=== PATIENT | female | born 1970 | race Caucasian/White ===

== ENCOUNTER → 2016-10-10 | Outpatient (CLI) | payer MEDICAID ==
[~2016-10-10] MED LIST: ABILIFY20 MG; ACETAMINOPHEN &1 TA1 PO; ATIVAN0.5 MG PO; CALTRATE 600600 MG PO; CLARITIN10 MG PO; DARVOCET A500 51 TAB PO; DARVOCET-N6 EACH/PAK PO; FLEXERIL10 MG PO; GABAPENTIN300 MG PO; HYDROCODONE-APA1 TA2 PO; LEVAQUIN 750 M750 MG PO; LISINOPRIL5 MG PO; LORTAB 5/500 501 TAB PO; LORTAB 500 MG-11 TAB PO; METFORMIN500 MG PO; MINOCYCLINE100 MG PO; NAPROSYN500 M1 PO; PEN-VK500 MG PO; PENICILLIN VK500 MG PO; PREDNISONE 20MG20 MG PO; PRILOSEC20 M1 PO; PROPRANOLOL HCL40 MG PO; SINGULAIR10 MG PO; SYNTHROID 0.0.125 MG PO; TAMIFLU 75MG CA75 MG PO; TESSALON PERLE100 M1 PO; TORADOL10 MG PO; TRAMADOL 50MG T50 M1 PO; TRAMADOL50 M1 PO; ZITHROMAX Z PA250 MG PO; ZOFRAN4 MG PO
--- NOTE | 2016-10-10 13:09 | RADIOLOGY REPORT PS360 ---
EXAM: CERVICAL SPINE 4 OR 5 VIEWS HISTORY: NECK PAIN ORDERING PHYSICIAN: REFERRAL PATIENT AGE: 46 years COMPARISON: None FINDINGS: Normal alignment. No fracture or dislocation. No lytic or blastic change. No significant degenerative change. The disc spaces are preserved. The foramina are widely patent. No prevertebral soft tissue swelling IMPRESSION: Negative cervical spine
== END ==
LOC: RAD 12:33
DX: M54.2 Cervicalgia (principal)

== ENCOUNTER 2017-03-17 12:33 | Emergency (ER) | payer MEDICAID ==
[~2017-03-17] VITALS: Ht 167.6 cm; Wt 113.4 kg
--- NOTE | 2017-03-17 13:31 | Urgent Treatment Center Report ---
History of Present Issue Date/Time Seen by Provider 03/17/17 1329 Visit Reason Pt arrived:Walked Presenting Problem:PT IS C/O RIGHT KNEE PAIN BUT DOES NOT RECALL AN INJURY Location if Accident: Onset of symptoms date/time:/ or onset unknown for:MEDICAL HX UNKNOWN Have you (or family members/close friends) recently traveled outside the [place]? N If Yes, where/when: Have you had exposure to infectious disease within the past month? TB? Other? Specify: Patient state that she has been havingt pain in her right knee area with mild swelling but does not recall doing anything to cause injury to the knee States that she has been having issues with the knee for several days now and has continued to get worse. States that today she decided to come in and have it checked out ALLERGIES Coded Allergies: No Known Allergies () Home Medications Active Scripts Benzonatate (Tessalon Perle) 100 MG PO TID #15 SGL Prov: 03/23/16 Prednisone (Prednisone 20MG) 20 MG PO BID #10 TAB Prov: 03/23/16 Minocycline Hcl (Minocycline HCl) 100 MG PO BID #14 CAP Prov: 03/23/16 Reported Medications TRAMADOL HCL (Tramadol) 50 MG PO BID Cyclobenzaprine Hcl (Flexeril) 10 MG PO PRN PRN SPASMS OMEPRAZOLE MAGNESIUM (Prilosec 20MG) 20 MG PO DAILYP PRN HEARTBURN Levothyroxine Sodium (Synthroid 0.125MG) 0.125 mg PO DAILY #90 Ref 1 Loratadine (Claritin 10MG Tab) 10 MG PO DAILY Montelukast Sodium (Singulair) 10 MG PO QHS HYDROCODONE/ACETAMINOPHEN (Hydrocodon-Acetaminophn 10-325) 1 TAB PO TIDP PRN BACK PAIN History Medical History General CAD? No Angina: No [place]: No Hypertension? No Hyperlipidemia? No CHF? No DVT? No PE? No COPD? No Asthma? Yes Anemia? No GERD? No Gastric ulcers? No GI Bleed? No Hernia? No Thyroid Problems? No Hypothyroidism? No CVA? No Seizures? Yes Diabetes? Yes Insulin Dependent: No Insulin Pump: No Home FSBS? Yes Renal Insuffiency? No UTI? No Stones? No BPH? No GB Disease: No Nephritic Syndrome? No Asplenia? No Hepatitis? No Sickle Cell Disease? No Arthritis? Yes Migraines? No Cataracts? No Glaucoma? No MRSA? No HIV? No TB? No Anxiety? No Depression? No Cancer? No More? No Immunization HX DT/Tetanus 5-10 Years Ago Flu Refused Pneumonia Unknown Surgical Hx Previous Surgery?Y X 1 TONSILECTOMY Tubal Ligation THYROIDECTOMY Family History Family HX Diabetes Yes CAD Yes Hypertension Yes Hyperlipidemia Yes Cancer Yes TB No Social History Smoking Hx Smoker: Never Smoker Tobacco: No Alcohol Alcohol: No Review of Systems All Other Systems Reviewed and Negative Comment Pain and mild swelling in her right knee but does not recall doing anything to cause injury to the knee Physical Exam Vital Signs Vital Signs Date Time Temp Pulse Resp B/P Pulse O2 O2 Flow FiO2 Ox Delivery Rate 03/17 1258 97.9 72 18 161/86 98 General Appearance normal appearance, WD/WN, no apparent distress Respiratory Status Yes: trachea midline, chest symmetrical, non tender chest. No: respiratory distress. 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 No Results/Orders Orders Procedure Date/time Status UTC STABILIZE JOINT/AREA 03/17 1357 Active KNEE-3 VIEWS-RT 03/17 1256 Active XRAY/CT/US XRAY/CT/US XRAY knee XR interpretation by reviewed by me Xray Results Arthritic changes, joint effusion noted Departure Departure Time of Disposition 1402 Disposition DC Home or Self Care(routine) Clinical Impression Primary Impression: Knee pain Qualifiers: Chronicity: unspecified Laterality: right Qualified Code: M25.561 - Pain in right knee Condition STABLE Referrals Chadwick WINSLOW,Martin Valderrama (Family) Adama Bahena MD: Today after leaving ER PAOLA WINSLOW, ROCKY KAM: Today after leaving ER Patient Instructions DI for Knee Pain, How To Perform RICE (Rest, Ice, Compress, Elevate) Additional Instructions Follow up with Orthopedics as advised in the office today Return if needed *RICE, Rest the extremity, Ice 15-20 minutes 3-4 times daily, Compress- wear the hiram wrap as discussed as much as possible to help reduce swelling and pain, Elevate the extremity when at rest *Hiram wrap is for support and help control swelling, use it except in the shower. Be sure that is not to tight but not to loose either *Elevate when resting *Ibuprofen 600-800mg every 6-8 hours as needed for pain an inflammation. If need something more can take Tylenol in between doses of Ibuprofen to help Immediately follow up for new or worsening of symptoms, or no noticeable improvement over the next 3-5 days Prescriptions Current Visit Scripts Ibuprofen (Ibuprofen 800MG) 800 MG PO QIDP PRN pain #30 TAB at 1167
[2017-03-17 14:07] VITALS: BP 161/86
--- NOTE | 2017-03-17 14:29 | RADIOLOGY REPORT PS360 ---
KNEE-3 VIEWS-RT HISTORY: KNEE PAIN X 1 DAY ORDERING PHYSICIAN: MASHA WALSH APRN PATIENT AGE: 46 years COMPARISON: None 08/06/2016 FINDINGS: There are moderate osteoarthritic changes of the medial compartment and patellofemoral joint with mild osteoarthritic changes of the lateral compartment. Bony spurs are present along the posterior aspect of the distal femur, the medial aspect of the distal femur, and patella as well as the medial and proximal aspect of the tibia. Small calcific densities once again noted on either side of the intercondylar notch probably due to osteophytes as previously described. There may be a small knee joint effusion in the suprapatellar region IMPRESSION: 1. No change osteoarthritis. 2. Possible small knee joint effusion
== END 2017-03-17 14:09 | disposition home or self-care (01) ==
LOC: UTC 12:33
DX: M25.561 Pain in right knee (principal); J45.909 Unspecified asthma, uncomplicated; M19.90 Unspecified osteoarthritis, unspecified site; E11.9 Type 2 diabetes mellitus without complications; Z79.891 Long term (current) use of opiate analgesic; Z79.899 Other long term (current) drug therapy

== ENCOUNTER 2017-03-24 16:10 | Emergency (ER) | payer MEDICAID ==
[~2017-03-24] VITALS: Ht 167.6 cm; Wt 136.1 kg
[~2017-03-24 16:10] MED LIST changes: +IBUPROFEN800 MG PO
--- NOTE | 2017-03-24 16:15 | Emergency Room Report ---
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 N Clinical Suspician of Infection? N Mental Status: 1 - Regular (Normal Baseline) Sepsis Risk:Low Sepsis Risk Have you (or family members/close friends) recently traveled outside the [place]? N If Yes, where/when: Have you had exposure to infectious disease within the past month? TB? Other? Specify: Comment The patient complains of pain in her anterior LEFT chest, LEFT arm, and the back of her neck. She says all of this began while laying down watching TV. She does not have shortness of breath, but says she is "blowing small breaths". She denies numbness. No injury. No nausea, vomiting, or diaphoresis. She does not have any known heart disease, but says that her mother does. She has never had a stress test or angiogram. She has been seen in the emergency room for chest pain before, says that she was diagnosed with pleurisy, but this is more intense. She says nothing seems to make her pain better or worse. The patient has chronic low back pain, she is in pain management. ALLERGIES Coded Allergies: No Known Allergies (03/24/17) Home Medications Active Scripts Ibuprofen (Ibuprofen 800MG) 800 MG PO QIDP PRN pain #30 TAB Prov: 03/17/17 Benzonatate (Tessalon Perle) 100 MG PO TID #15 SGL Prov: 03/23/16 Prednisone (Prednisone 20MG) 20 MG PO BID #10 TAB Prov: 03/23/16 Minocycline Hcl (Minocycline HCl) 100 MG PO BID #14 CAP Prov: 03/23/16 Reported Medications TRAMADOL HCL (Tramadol) 50 MG PO BID Cyclobenzaprine Hcl (Flexeril) 10 MG PO PRN PRN SPASMS OMEPRAZOLE MAGNESIUM (Prilosec 20MG) 20 MG PO DAILYP PRN HEARTBURN Levothyroxine Sodium (Synthroid 0.125MG) 0.125 mg PO DAILY #90 Ref 1 Loratadine (Claritin 10MG Tab) 10 MG PO DAILY Montelukast Sodium (Singulair) 10 MG PO QHS HYDROCODONE/ACETAMINOPHEN (Hydrocodon-Acetaminophn 10-325) 1 TAB PO TIDP PRN BACK PAIN History Medical History General CAD? No Angina: No [place]: No Hypertension? No Hyperlipidemia? No CHF? No DVT? No PE? No COPD? No Asthma? Yes Anemia? No GERD? No Gastric ulcers? No GI Bleed? No Hernia? No Thyroid Problems? No Hypothyroidism? No CVA? No Seizures? Yes Diabetes? Yes Insulin Dependent: No Insulin Pump: No Home FSBS? Yes Renal Insuffiency? No End Stage Renal Disease? No UTI? No Stones? No BPH? No GB Disease: No Nephritic Syndrome? No Asplenia? No Hepatitis? No Sickle Cell Disease? No Arthritis? Yes Migraines? No Cataracts? No Glaucoma? No MRSA? No HIV? No TB? No Anxiety? No Depression? No Cancer? No More? No Immunization Hx DT/Tetanus 5-10 Years Ago Flu Refused Pneumonia Unknown Surgical Hx Previous Surgery?Y X 1 TONSILECTOMY Tubal Ligation THYROIDECTOMY Family History Family Hx Diabetes Yes CAD Yes Hypertension Yes Hyperlipidemia Yes Cancer Yes TB No Social History Alcohol Alcohol: No Review of Systems All Other Systems Reviewed and Negative Constitutional denies diaphoresis, denies fever Respiratory denies cough, denies shortness of breath Cardiovascular chest pain Gastrointestinal denies abdominal pain, denies nausea, denies vomiting Musculoskeletal see HPI, neck pain Psychiatric/Neurological denies numbness, denies weakness Physical Exam Vital Signs Vital Signs Date Time Temp Pulse Resp B/P Pulse O2 O2 Flow FiO2 Ox Delivery Rate 03/24 1928 97.9 70 18 139/67 96 03/24 1825 70 18 125/93 96 03/24 1654 88 20 128/94 94 03/24 1647 20 03/24 1611 97.9 86 18 155/80 99 General Appearance mild distress Eye Exam - bilateral eye normal exam, bilateral eye PERRL, bilateral eye EOMI Ear, Nose, Throat hearing grossly normal, normal ENT inspection Neck cervical spine tenderness. Positive Spurling test to the LEFT. Respiratory Status Yes: trachea midline, chest symmetrical, non tender chest. No: respiratory distress. Lung Sounds bilateral: normal breath sounds, lungs clear. Cardiovascular normal exam, regular rate/rhythm, no peripheral edema, no gallop, no JVD, no murmur, no rub, normal peripheral pulses Peripheral Pulses Pulses normal Yes Gastrointestinal normal bowel sounds, normal exam, non tender, soft, no organomegaly Extremities non-tender, normal range of motion, normal inspection Neurologic alert, normal exam, no motor/sensory deficits, oriented x 3 Mental status appears anxious Skin intact, normal color, warm/dry Medical Decision Making LABS/Meds/Orders Pt receiving controlled substance in ED? Yes Comment [id number] rxs. last rx 03/18/17, 120 lortab 7.5mg. Results/Orders Laboratory Tests 03/24/17 1830: Troponin I < 0.02 03/24/17 1614: Sodium 137, Potassium 4.2, Chloride 102, Carbon Dioxide 28, BUN 18, Creatinine 0.9, Estimated Creat Clear 170, Estimated GFR (MDRD) 68, Glucose 108 H, Calcium 8.9, Total Bilirubin 0.2, AST 6 L, ALT 19, Alkaline Phosphatase 75, Creatine Kinase 34, CK-MB (CK-2) Rel Index 1.5, CK and CKMB Interp < 0.5, Troponin I < 0.02, Total Protein 7.8, Albumin 3.5, Globulin 4.3 H, Albumin/Globulin Ratio 0.8 L, WBC 12.1 H, RBC 4.47, Hgb 11.0 L, Hct 34.7 L, MCV 77.7 L, RDW 15.5, Plt Count 355, Gran % 64.6, Gran # 7.8, Lymphocytes % 31.5, Monocytes % 3.9, Lymphocytes # 3.8, Monocytes # 0.5, PUBS MCHC 31.7 L, MCH 24.6 L Current Medication Orders Sig/Josie Start time Last Medication Dose Route Stop Time Status Admin Aspirin 324 MG ONCE ONE 03/24 1645 DC 03/24 PO 03/24 Aspirin 0 .STK-MED ONE 03/24 1645 DC .ROUTE Methylprednisolone 125 MG ONCE ONE 03/24 1645 DC 03/24 Sodium Succinate IV 03/24 Methylprednisolone 0 .STK-MED ONE 03/24 1645 DC Sodium Succinate .ROUTE Morphine Sulfate 4 MG ONCE ONE 03/24 1645 DC 03/24 IV 03/24 1646 1647 Morphine Sulfate 0 .STK-MED ONE 03/24 1645 DC .ROUTE Ondansetron HCl 4 MG ONCE ONE 03/24 1645 DC 03/24 IV 03/24 1646 1647 Ondansetron HCl 0 .STK-MED ONE 03/24 1645 DC .ROUTE Sodium Chloride 10 ML PRN PRN 03/24 1645 AC IV 03/25 1642 Orders Procedure Date/time Status TROPONIN I 03/24 182 Complete IV SALINE LOCK 03/24 164 Active CBC WITH AUTO DIFF 03/24 164 Complete CARDIAC ENZYMES 03/24 164 Complete CHEM 12 PROFILE 03/24 164 Complete CM/EKG CM/EKG Comments EKG interpreted by Robert Burns MD: Rhythm: sinus Rate: 87 [place]: normal Ectopy: none Conduction: normal ST Segment Changes: none T Wave Changes: none Q Waves: none No evidence of acute ischemia or injury Baseline artifact and wander present, but I consider the EKG adequate for accurate interpretation. Prior electrocardiagrams reviewed. No change from prior tracings. XRAY/CT/US XRAY/CT/US XRAY chest Comment Chest x-ray interpreted by Robert Burns M.D. No infiltrate, pneumothorax, pleural effusion, or wide mediastinum. Progress - 5:45 PM: Patient states pain is much better. 7:00 PM: Second troponin less than 0.02. Symptoms do not suggest cardiac cause, but more suggestive of cervical radiculopathy. A prominent aspect of her presentation is pain and tenderness in the back of her neck and pain with movement, positive Spurling. Patient states she feels good. I feel she can be discharged for outpatient follow-up. She has pain medication and muscle relaxers at home. I will also start on prednisone. I estimate there is LOW risk for PULMONARY EMBOLISM, ACUTE CORONARY SYNDROME, OR THORACIC AORTIC DISSECTION, thus I consider the discharge disposition reasonable. Departure Departure Disposition DC Home or Self Care(routine) Clinical Impression Primary Impression: Atypical chest pain Secondary Impressions: Radicular pain Condition STABLE Patient Instructions DI for Atypical Chest Pain, DI for Cervical Radiculopathy Additional Instructions Additional instructions for CHEST PAIN: See your physician as soon as possible for further evaluation. Return immediately if worsening chest pain, vomiting, shortness of breath, fever, coughing of blood. Additional instructions for NECK PAIN: See your physician as soon as possible for further evaluation. Return immediately if neck pain becomes intolerable, or if fever, numbness or weakness of your arms or legs, loss of control of your bowels or bladder. Prescriptions Current Visit Scripts Prednisone (Prednisone 20MG Tab) 20 MG PO BID #10 TAB ED Critical Care Critical Care No at 1937
[2017-03-24 16:56] LABS: LYMPH # 3.8 K/mm3 (0.7-4.5); LYMPH % 31.5 % (10-50.0)
[2017-03-24 17:22] LABS: BUN 18 mg/dL (7-18); GFR (ESTIMATED) 68 ML/MIN (59-)
--- NOTE | 2017-03-24 17:37 | RADIOLOGY REPORT PS360 ---
CHEST(2 VIEWS-NOT PORTABLE) HISTORY: chest pain ORDERING PHYSICIAN: Robert Burns MD PATIENT AGE: 46 years COMPARISON: 05/13/2016 FINDINGS: The cardiomediastinal silhouette and pulmonary vascularity are within normal limits. The lungs are clear without infiltrates, suspicious nodules, or pleural effusions. No acute bony abnormalities. There is an azygos fissure is normal variant IMPRESSION: Negative chest, no acute finding
[2017-03-24] MEDS ORDERED: PREDNISONE20 MG PO (19:05)
[2017-03-24 19:32] VITALS: BP 139/67
== END 2017-03-24 19:34 | disposition home or self-care (01) ==
LOC: ER 16:10
PROVIDERS: Emergency Medicine
DX: R07.89 Other chest pain (principal); M54.12 Radiculopathy, cervical region; J45.909 Unspecified asthma, uncomplicated; E11.9 Type 2 diabetes mellitus without complications
CPT/HCPCS: J2405

== ENCOUNTER → 2017-04-17 | Outpatient (CLI) | payer MEDICAID ==
[~2017-04-17] MED LIST changes: +PREDNISONE20 MG PO
== END ==
LOC: RAD 15:51
DX: M17.11 Unilateral primary osteoarthritis, right knee (principal)

== ENCOUNTER → 2017-04-20 | Outpatient (CLI) | payer MEDICAID ==
--- NOTE | 2017-04-22 12:54 | RADIOLOGY REPORT PS360 ---
MRI-LOW EXT ANY JOINT W/O-RT MRI right knee HISTORY: PRIMARY OSTEOARTHRITIS OF RIGHT KNEE knee pain 2 years anterior and medial knee. Patient Age: 46 years: Female Ordering Physician: ROCKY GUEVARA MD TECHNIQUE: Multiplanar multisequence imaging 1.5T MRI large patient likely requiring alternative coil COMPARISON :3 view radiograph right knee 03/17/2017 FINDINGS OSTEOARTHRITIS. Most pronounced medial compartment Joint space narrowing & diffuse chondral thinningmost evident at the medial compartment. Tricompartmental marginal osteophytes are most large exuberant marginal osteophytes most evident about the margin of the medial compartment and specifically from the medial femoral condyle. Best seen on coronal images... Reactive bone changes most notable at the the medial margin medial tibial plateau reflecting the narrowed joint, osteoarthritis and MMT features here. MEDIAL MENISCAL TEARclearly evident most pronounced posterior horn which appears to have somewhat fragmented appearance on sagittal images.qq, and could not exclude a displaced meniscal fragment just along the medial margin of the PCL. This will require inspection arthroscopy procedure if performed. Meniscal tear extends into into the body the medial meniscus. Also note the The medial meniscus has migrates medially, accompanying the prominent marginal osteophytes Note metallic artifact along the medial margin joint-may reflect previous procedure at knee. Lateral Compartment: is better maintained. Lateral meniscus intact. Mild/moderate size marginal osteophytes lateral margin of joint. Cartilage better fairly well maintained Prominent Joint Effusion most evident at suprapatellar bursa. Patellofemoral joint with notable arthritic changes as well.. Generous marginal osteophytes about the margin of patella most evident lateral & inferior margin patella. However cartilage posterior patella appears maintained. Very slight lateral position of patella on Axial images at patellofemoral joint. Ligaments: MCL appears intact breast mildly thickened lateral collateral ligament appear appears thin but I believe is intact Patellar tendon and quadriceps tendon intact ACL intact.. PCL appears intact with question slight thickened near its attachment, vs questionable adjacent meniscal fragment ...... Additionally Note 14 mm x 15 mm geode/, subchondral cyst beneath the posterior tibial spine IMPRESSION: 1. PROMINENT OSTEOARTHRITIS changes knee, mainly involving medial compartment . Marked joint space narrowing medial compartment, with large exuberant marginal osteophytes & reactive bone changes at medial margin medial tibial plateau. 2. MEDIAL MENISCAL TEAR most pronounced at posterior horn but also involving body medial meniscus. . ( With this difficult to exclude a small meniscal fragment on medial aspect inferior PCL.) 3. Prominent joint effusion.
== END ==
LOC: RAD 10:58
DX: M17.11 Unilateral primary osteoarthritis, right knee (principal)

== ENCOUNTER → 2017-05-06 | Outpatient (CLI) | payer MEDICAID ==
[~2017-05-06] MED LIST changes: +PERCOCET 5/3251 EACH PO
--- NOTE | 2017-05-07 10:12 | RADIOLOGY REPORT PS360 ---
US THYROID HISTORY: Follow-up thyroid nodule THYROMEGLY ORDERING PHYSICIAN: Giuseppe Abraham MD PATIENT AGE: 46 years COMPARISON: 02/04/2017 FINDINGS: The right lobe has been removed. Left lobe: 4.7 x 2.2 x 2.5 cm. Multiple left thyroid nodules: Nodule A: 10 x 6 mm slightly hypoechoic not significant change. Nodule B: 16 x 10 mm mixed echogenicity unchanged Nodule C: 14 x 9 mm mostly hypoechoic unchanged Nodule D: Partially cystic 14 x 8 mm unchanged. No new nodules evident. IMPRESSION: Overall no change multinodular goiter on the left. Prior right thyroidectomy
== END ==
LOC: RAD 13:00
DX: E01.0 Iodine-deficiency related diffuse (endemic) goiter (principal)

== ENCOUNTER 2017-05-11 08:38 | Observation (INO) | payer MEDICAID ==
[~2017-05-11] VITALS: Ht 167.6 cm; Wt 150.3 kg
[~2017-05-11 08:38] MED LIST changes: -PERCOCET 5/3251 EACH PO
--- NOTE | 2017-05-11 12:38 | Anesthesia Record ---
Anesthesia Record Part II Discharge time: 1305 Destination: Same day surgery PACU nurse assessment review? Yes Patient is: Awake, Stable Anesthesia complications? No at 1233
--- NOTE | 2017-05-11 12:38 | Anesthesia Record ---
Anesthesia Record Part I Total IV fluids: 1800 EBL (ml): 0 Urine Output: 0 B/P: 123/66 % SaO2: 89 Pulse: 95 Resps: 12 Temp: 97.8 Patient is: Awake, Stable Stable to PACU at: 1235 at 1237
--- NOTE | 2017-05-11 14:57 | RADIOLOGY REPORT PS360 ---
KNEE-3 VIEWS-RT HISTORY: POST OP CALCIUM INJ ORDERING PHYSICIAN: ROCKY GUEVARA MD PATIENT AGE: 47 years COMPARISON: None FINDINGS: AP and lateral views are obtained joint a small lucent defect in the proximal tibia at the interspinous region as well as a small lucent defect involving the medial aspect of the proximal tibia in the subchondral region. Osteoarthritic changes are present involving all 3 compartments. There is a small amount postoperative gas in the suprapatellar region. IMPRESSION: Osteoarthritis with postsurgical defects and small amount of gas within the superior aspect of the knee joint
--- OUTSIDE RECORDS SUMMARY | 2017-05-11 16:23 | External Medical Summary Rpt | CCD ---
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 [TIETZE] R07.89 OTHER CHEST PAIN R09.1 PLEURISY S83.90XA SPRAIN OF UNSPECIFIED SITE OF UNSPECIFIED KNEE, INIT ENCNTR Z20.828 CONTACT W AND EXPOSURE TO OTH VIRAL COMMUNICABL E DISEASES Allergies, Adverse Reactions, Alerts Type Allergy to substance Adverse Reaction to Substance Substance Reaction Severity NO KNOWN ALLERGIES Unknown Unknown Medications Na ND Rx Da Fi Fi Am Da Di Ph RX Ph St me C No te ll ll ou ys ag ar # ys at rm s nt no ma ic us Or Da si cy ia de te s n re d Sa 63 03 0 No li 80 -0 ne 70 9- Lo 10 20 ng Fl 07 13 er us 5 h Ac 10 ti ML ve Sy ri ng e KE 00 03 0 No TO 40 -0 RO 93 9- Lo LA 79 20 ng C 50 13 er 30 1 Ac MG ti /M ve L AL Me 00 03 0 No th 00 -0 yl 90 9- Lo pr 19 20 ng ed 00 13 er ni 9 so Ac lo ti ne ve So d Ruiz cc in a CE 00 03 0 No FT 40 -0 RI 97 9- Lo AX 33 20 ng ON 30 13 er E 4 1 Ac GM ti ve AL So 00 03 0 No d 07 -0 Ch 47 9- Lo lo 10 20 ng ri 11 13 er de 3 Ac 0. ti 9% ve 50 ML Ad v Vital Signs 09-04-2012 23:35 Name Value Interpretat Reference Comment ion Range Body 97.7 [degF] Temperature BP 62 mm[Hg] Diastolic BP Systolic 111 mm[Hg] Heart 84 /min Rate/Pulse O2% 95 % Respiratory 17 /min Rate 09-04-2012 23:33 Name Value Interpretat Reference Comment ion Range Body 97.7 [degF] Temperature 09-04-2012 20:56 Name Value Interpretat Reference Comment ion Range BP 89 mm[Hg] Diastolic BP Systolic 125 mm[Hg] Heart 98 /min Rate/Pulse Respiratory 20 /min Rate 09-04-2012 20:39 Name Value Interpretat Reference Comment ion Range O2% 96 % Results Labs Lab Lab Date Result Refere Interp Status Commen Order Detail nces retati t Range on Glucose capillary blood glucometer (05-11-2017 12:49) Glucose = 134 70-110 complet 017 mg/dl ed capilla 12:[address] Hemoglobin A1c measurement (05-11-2017 09:20) Comment: COMMENTS TO OPHTHALMIC SURGICAL ASSISTANT: GOTTEN WITH IV Hemoglo 5.6 % 0.0-7.0 complet bin A1c 017 ed 09:20 Comment: < 6% NON-DIABETIC LEVEL Comment: < 7% CONTROLLED DIABETIC LEVEL Comment: > 8% POORLY CONTROLLED DIABETIC LEVEL Hemoglobin A1c in Blood (05-11-2017 09:20) Hemoglo 5.6 % 0.0% Normal complet bin A1c 017 - ed in 09:20 7.0% Blood Glucose capillary blood glucometer (05-11-2017 09:17) Glucose 2 = 104 70-110 complet 017 mg/dl ed capilla 09:[address] Urine test (05-11-2017 09:00) Urine 05-11-2 = NEG complet pregnan 017 NEGATIV ed cy test 09:00 E Comment: Aleisha Basic metabolic panel (04-29-2017 08:15) Serum = 138 136-145 complet sodium 017 mmoL/L ed measure 08:15 ment Serum 2 = 4.2 3.5-5.1 complet potassi 017 mmoL/L ed um 08:15 measure ment Serum = 96 74-106 complet or 017 mg/dL ed plasma 08:15 glucose measure ment (mas Estimat = 78 59- complet ed 017 ML/MIN ed glomeru 08:15 lar filtrat ion rate (GF Comment: REFERENCE RANGE: >60 ML/MIN/1.73 SQUARE METERS Comment: If this patient is -German, then multiply the Comment: result by 1.210. Serum = 8.7 8.5-10. complet or 017 mg/dL 1 ed plasma 08:15 calcium measure ment (mas Serum = 0.8 0.55-1. complet or 017 mg/dL 02 ed plasma 08:15 creatin ine measure ment ( Carbon = 29 21.0-32 complet dioxide 017 mmoL/L .0 ed 08:15 measure ment Serum = 103 98-107 complet or 017 mmoL/L ed plasma 08:15 chlorid e measure ment (mo Serum = 14 7-18 complet or 017 mg/dL ed plasma 08:15 urea nitroge n measure men CBC w auto diff (04-29-2017 08:15) Lymphoc = 35.4 10-50.0 complet yte 017 % ed count, 08:15 blood, automat ed Absolut = 3.1 0.7-4.5 complet e 017 K/mm3 ed lymphoc 08:15 yte count Blood = 11.0 12.2-16 complet hemoglo 017 g/dL .2 ed bin 08:15 measure ment (mass/v olum Blood = 36.2 37.0-47 complet hematoc 017 % .0 ed rit 08:15 (volume fractio n) Granulo = 57.4 37.0-80 complet cyte 017 % .0 ed percent 08:15 age Blood = 5.0 1.8-7.8 complet granulo 017 K/mm3 ed cytes 08:15 automat ed count (numb Automat = 2.3 % 0.1-12. complet ed 017 0 ed blood 08:15 eosinop hils/10 0 leukocy t Automat = 0.2 0.0-0.4 complet ed 017 K/mm3 ed blood 08:15 eosinop hil count Baso % = 0.4 % 0.1-2.0 complet 017 ed 08:15 Automat = 0.0 0-0.2 complet ed 017 K/MM3 ed blood 08:15 basophi l count (count/ vo Blood = 8.7 4.8-10. complet leukocy 017 K/MM3 8 ed santa 08:15 count (number /volume ) Automat = 13.4 11.5-17 complet ed 017 % .5 ed erythro 08:15 cyte distrib ution width Red = 4.57 4.2-5.4 complet blood 017 M/mm3 ed cell 08:15 count Blood = 395 142-424 complet platele 017 K/mm3 ed t count 08:15 Automat = 6.7 7.4-10. complet ed 017 fl 4 ed blood 08:15 platele t mean volume navneet [place] % = 4.5 % 1.7-9.3 complet 017 ed 08:15 Absolut = 0.4 0.1-1.0 complet e 017 K/mm3 ed monocyt 08:15 e count Automat = 79.3 82.2-97 complet ed 017 fl .8 ed erythro 08:15 cyte mean corpusc ular v Automat = 30.3 31.8-35 complet ed 017 g/dl .4 ed erythro 08:15 cyte mean corpusc ular h Mean = 24.0 27-31.2 complet corpusc 017 pg ed ular 08:15 hemoglo bin (MCH) determ Urine test (04-29-2017 08:15) Urine = NEG complet pregnan 017 NEGATIV ed cy test 08:15 E COMPREHENSIVE METABOLIC PANEL (09-04-2012 20:35) Glucose 108 74-106 complet 013 mg/dL ed Bld-mCn 20:35 c BUN 16 7-18 complet Bld-mCn 013 mg/dL ed c 20:35 Creat 1.1 0.6-1.0 complet SerPl-m 013 mg/dL ed Cnc 20:35 ESTIMAT 128 50-200 complet ED 013 ML/MIN ed CREATIN 20:35 INE CLEARAN CE GFR 55 59- complet (ESTIMA 013 ML/MIN ed CLAUS) 20:35 Sodium 138 136-145 complet SerPl-s 013 mmoL/L ed Cnc 20:35 Potassi 3.6 3.5-5.1 complet um 013 mmoL/L ed SerPl-s 20:35 Cnc Chlorid 101 98-107 complet e 013 mmoL/L ed SerPl-s 20:35 Cnc CO2 27 21.0-32 complet SerPl-s 013 mmoL/L .0 ed Cnc 20:35 Calcium 8.3 8.5-10. complet 013 mg/dL 1 ed SerPl-m 20:35 Cnc Prot 7.6 6.4-8.2 complet SerPl-m 013 gm/dL ed Cnc 20:35 Albumin 3.5 3.4-5.0 complet 013 gm/dL ed SerPl-m 20:35 Cnc Globuli 4.1 1.3-3.2 complet n 013 gm/dL ed Ser-mCn 20:35 c Albumin 0.9 UNK 1.1-1.8 complet /Glob 013 ed SerPl-m 20:35 Rto Bilirub 0.2 0.2-1.0 complet 013 mg/dL ed SerPl-m 20:35 Cnc AST 14 U/L 15-37 complet SerPl-c 013 ed Cnc 20:35 ALT 37 U/L 30-65 complet SerPl-c 013 ed Cnc 20:35 ALP 95 U/L 50-136 complet SerPl-c 013 ed Cnc 20:35 D Dimer PPP (09-04-2012 20:35) D Dimer 138 0-400 complet PPP 013 ng/mL ed 20:35 CBC with AUTO DIFF (09-04-2012 20:35) WBC # 03-09-2 11.9 4.8-10. complet Bld 013 K/MM3 8 ed Auto 20:35 RBC # 03-09-2 4.79 4.2-5.4 complet Bld 013 M/mm3 ed Auto 20:35 Hgb 03-09-2 12.4 12.2-16 complet Bld-mCn 013 g/dL .2 ed c 20:35 Hct Fr 09-04-2 38.1 % 37.0-47 complet Bld 013 .0 ed 20:35 MCV RBC 0309-2 79.7 fl 82.2-97 complet 013 .8 ed 20:35 MCH RBC 09-2 25.8 pg 27-31.2 complet Qn 013 ed Auto 20:35 MEAN 09-2 32.4 31.8-35 complet CORPUSC 013 g/dl .4 ed ULAR 20:35 HGB CONC RDW RBC 09-04-2 13.5 % 11.5-17 complet Auto 013 .5 ed 20:35 Platele --2 337 142-424 complet t Bld 013 K/mm3 ed Ql 20:35 Manual MEAN 7.0 fl 7.4-10. complet PLATELE 013 4 ed T 20:35 VOLUME Granulo --2 65.8 % 37.0-80 complet cytes 013 .0 ed Fr Bld 20:35 Auto LYMPH % -09-2 26.8 % 10-50.0 complet 013 ed 20:35 Monocyt -09-2 4.2 % 1.7-9.3 complet es Fr 013 ed Bld 20:35 Auto Eosinop -09-2 2.9 % 0.1-12. complet hil Fr 013 0 ed Bld 20:35 Auto Basophi -09-2 0.3 % 0.1-2.0 complet ls Fr 013 ed Bld 20:35 Auto Granulo -09-2 7.8 1.8-7.8 complet cytes # 013 K/mm3 ed Bld 20:35 Auto Lymphoc -09-2 3.2 0.7-4.5 complet ytes Fr 013 K/mm3 ed Bld 20:35 Auto Monocyt 03-09-2 0.5 0.1-1.0 complet es # 013 K/mm3 ed Bld 20:35 Auto Eosinop 0.3 0.0-0.4 complet hil # 013 K/mm3 ed Bld 20:35 Auto Basophi 0.0 0-0.2 complet ls # 013 K/MM3 ed Bld 20:35 Auto Encounters Encounter Start End Date Code Location Performer Type Date Emergency SARAH Genao MD (ER) 3 20:49 3 23:34 [facility]
--- OUTSIDE RECORDS SUMMARY | 2017-05-11 16:23 | External Medical Summary Rpt | CCD ---
Author Author , BRUNO Organization BRUNO Address Unknown Phone [email or web address] Providers Care Agency Cashier Name Role Phone Diya LEE, Unavailable Unavailable Diya LEE Purpose Continuity of Care Document - 09-04-2012 through 2016 Problems Code Diagnosis DOS Provider Status 401.1 Benign Vinny essential [facility] n 724.5 Chronic Vinny back pain [facility] J18.9 PNEUMONIA, UNSPECIFIED ORGANISM M54.10 RADICULOPAT [...] A1c measurement (05-11-2017 09:20) Comment: COMMENTS TO TEMPLATE REPRODUCTION TECHNICIAN: GOTTEN WITH IV Hemoglo 5.6 % 0.0-7.0 [...] SQUARE METERS Comment: If this patient is -[place], then multiply the Comment: result by 1.210. [...] blood 08:15 platele t mean volume navneet [place] % = 4.5 % 1.7-9.3 complet 017 [...] Genao MD (ER) 3 20:49 3 23:34 [facility]
--- OUTSIDE RECORDS SUMMARY | 2017-05-11 16:24 | External Medical Summary Rpt ---
Author Author BRUNO Rocco, BRUNO [employer] Organization [employer] Address Unknown Phone Unavailable Results Glucose [Mass/volume] in Capillary blood by Glucometer Observa Value Referen Units Interpr Notes Date tion ce etation Range Glucose 70 - 110 mg/dl High No May 11 [Mass/vol informati 2016 ume] in on in 12:49 PM Capillary source blood by data Glucomete r Hemoglobin A1c in Blood Observa Value Referen Units Interpr Notes Date tion ce etation Range COMMENTS TO PRIMER PRESS OPERATOR: GOTTEN WITH IV Hemoglo 5.6 0.0 - % Normal < 6% May 11 bin A1c 7.0 NON-JOSE 2016 in BETIC 9:20 AM Blood LEVEL< 7% CONTROL LED DIABETI C LEVEL> 8% POORLY CONTROL LED DIABETI C LEVEL Glucose [Mass/volume] in Capillary blood by Glucometer Observa Value Referen Units Interpr Notes Date ti ce etation Range Glucose 70 - 110 mg/dl Normal No May 11 [Mass/vol informati 2016 9:17 ume] in on in AM Capillary source blood by data Glucomete r Choriogonadotropin.beta subunit [Units] in 24 hour Urine Observa Value Referen Units Interpr Notes Date ti ce etation Range Choriogon NEG No No Aleisha May 11 adotropin informati informati 2016 9:00 .beta on in on in AM subunit source source [Units] data data in 24 hour Urine Basic metabolic panel in Blood Observa Value Referen Units Interpr Notes Date ti ce etation Range Urea 7 - 18 mg/dL Normal No Apr 29 nitrogen informati 2016 8:15 [Mass/vol on in AM ume] in source Serum or data Plasma Calcium 8.5 - mg/dL Normal No Apr 29 [Mass/vol 10.1 informati 2017 8:15 ume] in on in AM Serum or source Plasma data Chloride 98 - 107 mmoL/L Normal No Apr 29 [Moles/vo informati 2016 8:15 lume] in on in AM Serum or source Plasma data Carbon 21.0 - mmoL/L Normal No Apr 29 dioxide, 32.0 informati 2016 8:15 total on in AM [Moles/vo source lume] in data Serum or Plasma Creatinin 0.55 - mg/dL Normal No Apr 29 e 1.02 informati 2017 8:15 [Mass/vol on in AM ume] in source Serum or data Plasma Estimated 59- ML/MIN No REFERENCE Nov 1 informati RANGE: 2016 8:15 glomerula on in >60 AM r source ML/MIN/1. filtratio data 73 SQUARE n rate METERSIf (GF this patient is -A merican, then multiply theresult by 1.210. Glucose 74 - 106 mg/dL Normal No Apr 29 [Mass/vol informati 2016 8:15 ume] in on in AM Serum or source Plasma data Potassium 3.5 - 5.1 mmoL/L Normal No Apr 29 informati 2016 8:15 [Moles/vo on in AM lume] in source Serum or data Plasma Sodium 136 - 145 mmoL/L Normal No Apr 29 [Moles/vo informati 2016 8:15 lume] in on in AM Serum or source Plasma data CBC W Auto Differential panel in Blood Observa Value Referen Units Interpr Notes Date tion ce etation Range Basophils 0 - 0.2 K/MM3 Normal No Apr 29 informati 2016 8:15 [#/volume on in AM ] in source Blood by data Automated count Basophils 0.1 - 2.0 % Normal No Apr 1 /100 informati 2017 8:15 leukocyte on in AM s in source Blood by data Automated count Eosinophi 0.0 - 0.4 K/mm3 Normal No Apr 29 ls informati 2016 8:15 [#/volume on in AM ] in source Blood by data Automated count Eosinophi 0.1 - % Normal No Apr 29 ls/100 12.0 informati 2016 8:15 leukocyte on in AM s in source Blood by data Automated count Granulocy 1.8 - 7.8 K/mm3 Normal No Apr 29 santa informati 2016 8:15 [#/volume on in AM ] in source Blood by data Automated count Granulocy 37.0 - % Normal No Apr 1 santa/100 80.0 informati 2016 8:15 leukocyte on in AM s in source Blood by data Automated count Hematocri 37.0 - % Low No Nov 1 t [Volume 47.0 informati 2017 8:15 on in AM Fraction] source of Blood data Hemoglobi 12.2 - g/dL Low No Nov 1 n 16.2 informati 2017 8:15 [Mass/vol on in AM ume] in source Blood data Lymphocyt 0.7 - 4.5 K/mm3 Normal No Nov 1 es informati 2017 8:15 [#/volume on in AM ] in source Unspecifi data ed specimen by Automated count Lymphocyt 10 - 50.0 % Normal No Nov 1 es informati 2017 8:15 [#/volume on in AM ] in source Unspecifi data ed specimen by Automated count Erythrocy 27 - 31.2 pg Low No Nov 1 te mean informati 2017 8:15 corpuscul on in AM ar source hemoglobi data n [Entitic mass] Erythrocy 31.8 - g/dl Low No Nov 1 te mean 35.4 informati 2017 8:15 corpuscul on in AM ar source hemoglobi data n concentra tion [Mass/vol ume] by Automated count Erythrocy 82.2 - fl Low No Nov 1 te mean 97.8 informati 2017 8:15 corpuscul on in AM ar volume source [Entitic data volume] by Automated count Monocytes 0.1 - 1.0 K/mm3 Normal No Nov 1 informati 2017 8:15 [#/volume on in AM ] in source Blood by data Automated count Monocytes 1.7 - 9.3 % Normal No Nov 1 /100 informati 2017 8:15 leukocyte on in AM s in source Blood by data Automated count Platelet 7.4 - fl Low No Nov 1 mean 10.4 informati 2017 8:15 volume on in AM [Entitic source volume] data in Blood by Automated count Platelets 142 - 424 K/mm3 Normal No Nov 1 informati 2017 8:15 [#/volume on in AM ] in source Blood data Erythrocy 4.2 - 5.4 M/mm3 Normal No Nov 1 santa informati 2017 8:15 [#/volume on in AM ] in source Amniotic data fluid Erythrocy 11.5 - % Normal No Nov 1 te 17.5 informati 2017 8:15 distribut on in AM ion width source [Entitic data volume] by Automated count Leukocyte 4.8 - K/MM3 Normal No Nov 1 s 10.8 informati 2017 8:15 [#/volume on in AM ] in source Blood data Choriogonadotropin.beta subunit [Units] in 24 hour Urine Observa Value Referen Units Interpr Notes Date tion ce etation Range Choriogon NEG No No No Nov 1 adotropin informati informati informati 2016 8:15 .beta on in on in on in AM subunit source source source [Units] data data data in 24 hour Urine CBC W Auto Differential panel in Blood Observa Value Referen Units Interpr Notes Date tion ce etation Range Granulocy 1.8 - 7.8 K/mm3 Normal No Sep 26 santa informati 2017 4:14 [#/volume on in PM ] in source Blood by data Automated count Granulocy 37.0 - % Normal No Sep 26 santa/100 80.0 informati 2017 4:14 leukocyte on in PM s in source Blood by data Automated count Hematocri 37.0 - % Low No Sep 26 t [Volume 47.0 informati 2017 4:14 on in PM Fraction] source of Blood data Hemoglobi 12.2 - g/dL Low No Sep 26 n 16.2 informati 2017 4:14 [Mass/vol on in PM ume] in source Blood data Lymphocyt 0.7 - 4.5 K/mm3 Normal No Sep 26 es informati 2017 4:14 [#/volume on in PM ] in source Unspecifi data ed specimen by Automated count Lymphocyt 10 - 50.0 % Normal No Sep 26 es informati 2017 4:14 [#/volume on in PM ] in source Unspecifi data ed specimen by Automated count Erythrocy 27 - 31.2 pg Low No Sep 26 te mean informati 2017 4:14 corpuscul on in PM ar source hemoglobi data n [Entitic mass] Erythrocy 31.8 - g/dl Low No Sep 26 te mean 35.4 informati 2017 4:14 corpuscul on in PM ar source hemoglobi data n concentra tion [Mass/vol ume] by Automated count Erythrocy 82.2 - fL Low No Sep 26 te mean 97.8 informati 2017 4:14 corpuscul on in PM ar volume source [Entitic data volume] by Automated count Monocytes 0.1 - 1.0 K/mm3 Normal No Sep 26 informati 2017 4:14 [#/volume on in PM ] in source Blood by data Automated count Monocytes 1.7 - 9.3 % Normal No Sep informati 2017 4:14 leukocyte on in PM s in source Blood by data Automated count Platelets 142 - 424 K/mm3 Normal No Sep 26 informati 2016 4:14 [#/volume on in PM ] in source Blood data Erythrocy 4.2 - 5.4 M/mm3 Normal No Sep 26 santa informati 2016 4:14 [#/volume on in PM ] in source Amniotic data fluid Erythrocy 11.5 - % Normal No Sep 26 te 17.5 informati 2016 4:14 distribut on in PM ion width source [Entitic data volume] by Automated count Leukocyte 4.8 - K/mm3 High No Sep 26 s 10.8 informati 2016 4:14 [#/volume on in PM ] in source Blood data XR CHEST PA AND LATERAL Observa Value Referen Units Interpr Notes Date tion ce etation Range PROCEDU No No No No May 03 RE: PA informa informa informa informa 2012 and tion in tion in tion in tion in 10:52 lateral source source source source PM chest, data data data data 05/03/20 13.\.br \\.br\I NDICATI ON: Cough.\ .br\FIN DINGS: PA and lateral chest. Compari son 6. Azygos lobe. Normal\ .br\hea rt size and\.br \pulmon jojo vascula rity. Lungs are clear. No infiltr ates, effusio n,\.br\ pneumot horax.\ .br\\.b r\IMPRE SSION: No acute finding s in the chest.
--- OUTSIDE RECORDS SUMMARY | 2017-05-11 16:24 | External Medical Summary Rpt | CCD ---
Author Author [employer] Organization [employer] Address Unknown Phone Unavailable Purpose Continuity of Care Document - through 2016
--- OUTSIDE RECORDS SUMMARY | 2017-05-11 16:24 | External Medical Summary Rpt ---
[...] Date tion ce etation Range COMMENTS TO DATA INPUT CLERK: GOTTEN WITH IV Hemoglo 5.6 0.0 - [...]
--- OUTSIDE RECORDS SUMMARY | 2017-05-11 16:24 | External Medical Summary Rpt | CCD ---
Demographics Preferred Language Swedish Marital Status Unknown Alevism Affiliation Unknown Race Unknown Ethnic Group Unknown Author Author , BRUNO CARR Address Unknown Phone Immunization No patient found.
--- OUTSIDE RECORDS SUMMARY | 2017-05-11 16:24 | External Medical Summary Rpt | CCD ---
Demographics Preferred Language Khmer Marital Status Unknown Roman Catholic Affiliation Unknown Race Unknown Ethnic Group Unknown Author Author , BRUNO CARR Address Unknown Phone Immunization No patient found.
[2017-05-11 16:48] VITALS: BP 135/68
--- NOTE | 2017-05-11 18:50 | Operative Note ---
Procedure/Operative Record Date of Procedure: 05/11/17 Referring physician: Dr. Genao Pre-op diagnosis: 1. Complex degenerative tear medial meniscal, RIGHT knee 2. 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 Complex degenerative tear medial meniscal, RIGHT knee 2. Primary osteoarthritis RIGHT knee 3. Chronic bone marrow lesion/microfracture medial tibial plateau, RIGHT knee 4. Discoid lateral meniscus, RIGHT knee Procedure performed: 1. Examination of RIGHT knee under anesthesia 2. Arthroscopic partial medial meniscectomy, RIGHT knee 3. Chondroplasty, patellofemoral and medial compartments, RIGHT knee 4. Sub-chondroplasty procedure medial tibial plateau, RIGHT knee Surgeon: Tahir WINSLOW,Emmanuel Lovett Pipe Fitter Maintenance(s): Jalyn Novak Anesthesia: General Indications: Patient is a 47-year-old female with right knee arthritis. She failed to respond satisfactorily to conservative management including injections and physical therapy. The MRI scan of her right knee is showing chronic bone marrow lesion (reactive bony edema) indicative of stress/microfracture over the medial tibial plateau. She also has degenerative changes in medial and patellofemoral compartments of the knee and degenerative medial meniscal tear. The surgical management option she elected includes right knee arthroscopy, resection of the torn medial meniscus, debridement/chondroplasty as needed and subchondroplasty procedure for the medial tibial plateau. This is indicated to relieve the pain and improve the function of her knee. Findings: Examination of the right knee under anesthesia, showed a stable knee joint with flexion from 0-120. Operative findings showed diffuse grade2- 3 changes over the patello-femoral compartment and grade 3-4 degenerative changes over the medial compartment. The lateral compartment showed a complete discoid lateral meniscus and well-preserved articular cartilage over the lateral femoral condyle. There were a couple of small osteochondral loose bodies in the suprapatellar pouch and the lateral gutter. There was degenerative tearing involving the body and posterior horn of medial meniscus. Osteophyte formation was noted over medial and patellofemoral compartments and the intercondylar notch. The anterior cruciate ligament was noted to be intact. Correlating the MRI findings with the arthroscopic findings we have decided to perform sub- chondroplasty procedure for the medial tibial plateau. Moderate synovitis was noted in the knee. Description of procedure: On the day of the procedure the patient was met in the preoperative area and positively identified. The limb was marked. I again discussed the diagnosis, natural history and management options including both nonsurgical and surgical. I discussed the proposed surgical procedure, risks and benefits and alternatives in detail. The complications discussed include but are not limited to infection, injury to nerves and blood vessels, injury to the ligaments and tendons, knee stiffness, arthrofibrosis, incomplete relief, incomplete functional recovery, DVT, PE, CRPS, complications related to anesthesia including heart attack, stroke and even . I have also discussed about the likely need for further surgery in future. I told her that there were no guarantees with surgery; she could be no better or even worse. We also discussed the postoperative recovery and rehabilitation protocol. I believe the patient to be well informed with regard to the proposed surgery. I told her that it could take few months for full recovery of the knee after surgery. She expressed a full understanding and wished to proceed with the planned surgery. A physical examination was performed and documented. The consent form was reviewed and signed. Patient was brought to the operating room and placed supine on the operating table. All the bony prominences were appropriately padded. A general anesthesia was administered by the anesthesia team. A well-padded tourniquet cuff was placed over the right upper thigh. Examination of the right knee under anesthesia, showed a stable knee joint with flexion from 0-120. The Right knee was then prepped and draped in the usual sterile fashion. A preprocedure timeout was performed as per protocol. Administration of prophylactic IV antibiotics was confirmed with the anesthetic team. The arthroscopic portals were marked on the skin. The limb was exsanguinated with Esmarch bandage and the tourniquet was inflated to 350 mmHg; please see the nursing notes for tourniquet time. I then made an anterolateral arthroscopic portal and introduced the arthroscope and performed the arthroscopic knee examination. I then created an anteromedial portal under direct vision. Arthroscopic findings included diffuse grade2- 3 changes over the patello-femoral compartment and grade 3-4 degenerative changes over the medial compartment. The lateral compartment showed a complete discoid lateral meniscus and well-preserved articular cartilage over the lateral femoral condyle. There were a couple of small osteochondral loose bodies in the suprapatellar pouch and the lateral gutter. There was degenerative tearing involving the body and posterior horn of medial meniscus. Osteophyte formation was noted over medial and patellofemoral compartments and the intercondylar notch. The anterior cruciate ligament was noted to be intact. Correlating the MRI findings with the arthroscopic findings we have decided to perform sub- chondroplasty procedure for the medial tibial plateau. Moderate synovitis was noted in the knee. After performing a thorough arthroscopic examination, I proceeded to perform partial medial meniscectomy, chondroplasty of patellofemoral and medial compartments and removal of loose bodies. Using the arthroscopic instruments and shaver, I performed the partial medial meniscectomy to a stable margin. I then performed chondroplasty of the medial and patellofemoral compartments using curette and arthroscopic shaver debriding the loose chondral flaps to a stable edge. I then removed all the loose bodies. The anterior cruciate ligament was noted to be intact. We then proceeded to perform sub-chondroplasty procedure for the medial tibial plateau. Using the C-arm control for guidance, I introduced the 3 mm side delivery AccuPort cannula into the medial tibial plateau. After confirming satisfactory position, I injected 5 cc of AccuFill BSM (premixed on the back table with saline) under fluoroscopic guidance. After confirming satisfactory injection of the AccuFill BSM we left the needle in place for about 8 minutes for this to set. After this the needle was removed and a repeat knee arthroscopy was performed. We had noticed no extrusion of the AccuFill into the knee joint. The knee joint was thoroughly washed out at the end of the procedure. The instruments were removed, the knee joint was emptied of the irrigating fluid and the arthroscopic sheath was removed. Fluoroscopic images were obtained and stored for future reference. The portals were sutured with 4- 0 Ethilon [id number] sutures. I then injected 60 mL of Marcaine with epinephrine around the portals/soft tissue as well as into the knee joint for postoperative pain relief. Sterile dressings and the pressure bandage was applied. The tourniquet cuff was removed from the thigh. The patient was then reversed from the anesthetic and transferred onto the [facility]. She was transported to the postoperative recovery area in stable condition. She tolerated the procedure well and there were no immediate complications. The swab needle and instruments counts were correct according to scrub team at the end of the procedure. Check x-ray in the PACU confirmed appropriate needle placement and injection of the AcuuFill BSM. Following recovery from the anesthetic the patient complained of severe knee pain which failed to respond satisfactorily to oral medication. Therefore she was admitted to the hospital for observation and pain management. EBL (ml): 2 Implant: ZimmerAccuFill BSM was used for sub-chondroplasty. [employer] business services sales representative: Duke Young from [employer] Complications: None Specimens: None at 1500 Specimens: None
--- NOTE | 2017-05-11 18:51 | ACUTE CARE PROGRESS NOTE ---
Progress note Date: 05/11/17 Assessment: Subjective: Patient was admitted to hospital postoperatively for better pain control. She underwent an arthroscopic partial medial meniscectomy, debridement and chondroplasty along with sub-chondroplasty procedure to the medial tibial plateau under general anesthesia earlier today. Surgery was uneventful. However, patient had issues with pain control postoperatively and was admitted for observation and better pain management. Patient was seen on the floor and still complaining of significant right knee pain even after receiving IV morphine and oral Percocet. Patient is on long-term hydrocodone, gabapentin and tramadol at home for management of low back pain. She is otherwise doing well and has had dinner earlier in the evening. No history of any nausea, or vomiting. No history of any distal tingling or numbness. Objective: 1ST Vital Signs Result Date Time B/P 108/65 05/11 0916 Temp 97.7 05/11 0916 Pulse 87 05/11 0916 Resp 18 05/11 0916 Pulse Ox 96 05/11 0931 O2 Delivery OXYGEN 05/11 1235 Vital Signs Result Date Time Resp 18 05/11 1844 Pulse Ox 97 05/11 1648 B/P 135/68 05/11 1648 O2 Delivery ROOM AIR 05/11 1648 Temp 98.1 05/11 1648 Pulse 101 05/11 1648 General appearance: alert, awake, no acute distress Cardiovascular: normal sinus rhythm, regular rate & rhythm Respiratory: clear to auscultation, normal breath sounds ABD: non-distended, normal bowel sounds, soft, no tenderness, no guarding, no organomegaly Skin: dry, intact On examination of her RIGHT lower extremity, the dressings over the right knee are clean, dry and intact. She has good range of foot, ankle and toe movements. Distal neurovascular status is intact. No signs of compartment syndrome noted. Impression: 1. Primary osteoarthritis of right knee 2. Complex tear of meniscus of right knee 3. Discoid lateral meniscus of right knee Plan: I reviewed the operative findings and procedure performed with the patient. Her pain is difficult to control with oral medication and the fact that she has been on long-term narcotic medication is likely contributing to this. Appropriate medication changes were made- added IV Dilaudid and ketorolac as needed and continue as needed Percocet. Continue rest, elevation, icing of the knee. She can mobilize weightbearing as tolerated. Observe for signs of compartment syndrome. If doing well tomorrow, then will discharge her home with appropriate oral medication. at 1926
[2017-05-11 19:12] VITALS: BP 100/65
[2017-05-11 20:07] VITALS: BP 100/65
[2017-05-11 23:58] VITALS: BP 114/75
[2017-05-12 04:25] VITALS: BP 121/52
--- NOTE | 2017-05-12 04:49 | RADIOLOGY REPORT PS360 ---
KNEE-LIMITED 2 VIEWS-RT HISTORY: CALCIUM INJECTION. ORDERING PHYSICIAN: ROCKY GUEVARA MD PATIENT AGE: 47 years COMPARISON: None Fluoroscopy time: 1 minute and 52 seconds FINDINGS: Fluoroscopy utilized for subchondral bone injection. Trochars placed in the medial aspect of the proximal tibia confirmed by images. IMPRESSION: As above
--- NOTE | 2017-05-12 07:32 | PHARMACY CLINIC NOTE ---
Patient Demographics Patient Demographics Admission date: 05/11/17 Date: 05/12/17 Time: 0731 Allergies Coded Allergies: No Known Allergies (05/11/17) HEIGHT- FT: 5 IN: 6.00 K.283 VTE General Information Disclaimer The following section includes nursing documentation that has been pulled in for pharmacy review. Patient's VTE score: 3 Patient's VTE Risk: LOW RISK VTE prophylaxis NQF [id number] VTE prophylaxis ordered? Yes Type of prophylaxis/treatment: CLAUS at 0731
[2017-05-12 08:15] VITALS: BP 119/68
[2017-05-12 08:23] VITALS: BP 119/68
[2017-05-12 12:00] VITALS: BP 107/74
[2017-05-12] MEDS ORDERED: PERCOCET 5/3251 EACH PO (13:00)
--- NOTE | 2017-05-12 13:02 | DISCHARGE SUMMARY STANDARD ---
Demographics Admit date: 05/11/17 Discharge date: 05/12/17 History of present illness History of present illness Patient is a 47-year-old female admitted for observation/pain control following an arthroscopic partial medial meniscectomy, debridement, chondroplasty and sub- chondroplasty procedure to the medial tibial plateau, right knee yesterday. She has had chronic knee pain for well over a year which failed to respond satisfactorily to conservative management including physical therapy, intra- articular steroid and Visco supplementation injections. Her x-rays show moderate degenerative changes in the knee and her symptoms started following an injury about a year ago. Most recently she had a series of 3 Supartz injections without any benefit. Her symptoms are fairly severe with significant pain and disability. She rates the pain 9 out of 10 at its worse on the pain scale. She has had these symptoms for over a year now and reports significant pain over the anteromedial aspect of the knee which gets worse with weightbearing, walking and knee movements. No history of any hip pain. No history of any locking or giving out but she states that the knee feels unstable. No history of any falls. She also reports intermittent knee swelling. She says she could hardly walk 100 yards and reports night pain. No history of any distal tingling or numbness. She cannot take nonsteroidal anti-inflammatory drugs because of her gastroesophageal reflux disease. She is a housewife. Hospital Course Hospital Course: Patient underwent an arthroscopic partial medial meniscectomy/debridement, chondroplasty and sub-chondroplasty procedure to the medial tibial plateau, right knee on 05/11/2017. Also noted was a complete discoid lateral meniscus. Postoperatively, her pain was poorly controlled with oral medication. The fact that she has been on opioid analgesics for long-term because of back pain may not have helped in this regard. Therefore, she was admitted to hospital for observation/pain management. She received as needed IV Dilaudid and as needed IV Toradol and oral as needed Percocet. This resume controlled her pain well and she had a good night. She has been up and about mobilizing weightbearing as tolerated on the right foot. No history of any fevers, chills or rigors. She is eating and drinking well. No history of any nausea or vomiting. No history of any distal tingling or numbness. The dressings were changed and the portals are clean, dry and healthy. No signs of any acute inflammation or infection noted. Encouraged her to perform quadriceps strengthening exercises and mobilize weightbearing as tolerated. Also advised her to ice the knee on a regular basis. She was discharged home on the first postoperative day. At the time of discharge, her pain was well controlled with medication. At the time of discharge, she is afebrile and hemodynamically stable. Discharge diagnoses Problem List 1. Primary osteoarthritis of right knee 2. Complex tear of meniscus of right knee 3. Discoid lateral meniscus of right knee 4. S/P arthroscopic partial medial meniscectomy Medications Medications: Discharge meds are as noted. Follow up Follow up in office in: 2 WEEKS with: ROCKY GUEVARA MD at [id number]
[2017-05-12 14:00] VITALS: BP 107/74
== END 2017-05-12 16:00 | disposition home or self-care (01) ==
LOC: SDC 08:38 → 2ND 16:20
PROVIDERS: Orthopaedic Surgery
PROC: 0SBC4ZZ Excision of Right Knee Joint, Percutaneous Endoscopic Approach (ICD-10-PCS; principal; 2017-05-11 10:00)
DX: M17.11 Unilateral primary osteoarthritis, right knee (principal)
CPT/HCPCS: C1713; G0378; J2405